=== PATIENT | male | born 1955 | race Caucasian/White ===

== ENCOUNTER 2025-05-17 23:01 | Emergency (ER) | payer MEDICARE, SELFPAY ==
[2025-05-17 23:02] VITALS: BP 131/95; PULSE 72; RESP 16; TEMP 36.6; O2SAT 100; BMI 23.6
[2025-05-18 00:02] VITALS: BP 136/99; PULSE 72; RESP 20; O2SAT 99
[2025-05-18 01:00] VITALS: BP 119/85; PULSE 75; RESP 22; O2SAT 98
[2025-05-18 02:00] VITALS: BP 109/75; PULSE 86; RESP 18; TEMP 36.8; O2SAT 97
== END 2025-05-18 02:24 | disposition home or self-care (01) ==
PROVIDERS: Emergency Provider Emergency Medicine; Visit Provider Emergency Medicine
DX: S06.9X1A Unspecified intracranial injury with loss of consciousness of 30 minutes or less, initial encounter (principal); F10.129 Alcohol abuse with intoxication, unspecified; W18.09XA Striking against other object with subsequent fall, initial encounter; Y92.000 Kitchen of unspecified non-institutional (private) residence as the place of occurrence of the external cause; R06.2 Wheezing; F17.210 Nicotine dependence, cigarettes, uncomplicated
CPT/HCPCS: 70450; 72125; 99284